=== PATIENT | female | born 1960 | race Caucasian/White ===

== ENCOUNTER → 2020-03-04 | Outpatient (CLI) | payer OTHER, SELFPAY ==
[~2020-03-04] MED LIST: HYDR1TAB94 PO; METPRE4DP PO; NAPR550 PO; OXYACE5T PO; Prinivil10 MG PO
[2020-03-06 17:19] LABS: CORONAVIRUS (COVID19) CSH-NRL Negative (Negative)
== END ==
LOC: LAB 18:47 → LAB SHORT 18:47
PROVIDERS: Chiropractor
DX: B34.9 Viral infection, unspecified (principal); Z20.828 Contact with and (suspected) exposure to other viral communicable diseases
CPT/HCPCS: U0003

== ENCOUNTER 2023-10-24 18:41 | Observation (INO) | payer OTHER ==
[~2023-10-24] VITALS: Ht 165.1 cm; Wt 67.4 kg
[2023-10-24 19:35] LABS: Influenza A, PCR NEGATIVE (NEGATIVE); Influenza B, PCR NEGATIVE (NEGATIVE); Resp Syncytial Virus, PCR NEGATIVE (NEGATIVE)
[2023-10-24] MEDS ORDERED: Acetaminophen 500 MG Tab PO ONE (20:05)
[2023-10-24 20:24] LABS: SARS-Cov-2 (COVID-19) PCR, MMC POSITIVE (NEGATIVE)
[2023-10-24] MEDS ORDERED: Lactated Ringer's 1,000 ML IV ONE ×2 (20:25→22:20)
[2023-10-24 20:28] LABS: BASOPHILS ABSOLUTE AUTO 0.03 K/mm3 (0.00-0.23); BASOPHILS PERCENT AUTO 1 % (0-2); EOSINOPHILS ABSOLUTE AUTO 0.02 K/mm3 (0.00-0.68); EOSINOPHILS PERCENT AUTO 0 % (0-6); Hematocrit 52.7 % (33.0-51.0); Hemoglobin 18.5 g/dL (11.5-16.0); IMMATURE GRAN ABSOLUTE AUTO 0.02 K/mm3 (0.00-0.10); IMMATURE GRAN PERCENT AUTO 0 % (0-1); LYMPHOCYTES ABSOLUTE AUTO 1.52 K/mm3 (0.84-5.20); LYMPHOCYTES PERCENT AUTO 23 % (21-46); MONOCYTES ABSOLUTE AUTO 0.55 K/mm3 (0.16-1.47); MONOCYTES PERCENT AUTO 8 % (4-13); Mean Corpuscular HGB 31.6 pg (26.0-34.0); Mean Corpuscular HGB Conc 35.1 g/dL (31.5-36.5); Mean Corpuscular Volume 90 fL (80-100); NEUTROPHILS ABSOLUTE AUTO 4.51 K/mm3 (1.96-9.15); NEUTROPHILS PERCENT AUTO 68 % (41-73); Platelet Count 197 K/mm3 (150-400); RDW Coefficient Variation 13.2 % (11.7-14.2); RDW Standard Deviation 43.7 fL (35.1-46.3); Red Blood Cell Count 5.86 M/mm3 (3.80-5.20); White Blood Cell Count 6.65 K/mm3 (4.00-11.30)
[2023-10-24 20:54] LABS: Albumin/Globulin Ratio 0.8 (0.8-1.8); Bilirubin, Total 0.5 mg/dL (0.1-1.0); Bun/Creatinine Ratio 27.1 (12.0-20.0); Calcium, Blood 8.5 mg/dL (8.5-10.1); Creatinine, Blood 0.7 mg/dL (0.40-1.00); Magnesium, Blood 2.2 mg/dL (1.6-2.4); Potassium, Blood 3.5 mmol/L (3.5-5.5)
[2023-10-24] MEDS ORDERED: Diltiazem HCl 5 MG / ML 5ML Vial IV ONE ×2 (21:00→22:30)
[2023-10-24 21:09] LABS: Thyroid Stimulating Hormone 1.86 uIU/mL (0.360-4.800)
[2023-10-24] MEDS ORDERED: Lactated Ringer's 1,000 ML IV SCH (22:15)
[2023-10-24] MEDS ORDERED: Ondansetron HCl 2 MG / ML 2ML Vial IV PRN (22:20)
[2023-10-24 22:36] LABS: Free Thyroxine 1.33 ng/dL (0.70-1.60)
[2023-10-24] MEDS ORDERED: Potassium Chloride 40 MEQ in NS 250 ML IV ONE (22:40)
[2023-10-24] MEDS ORDERED: Metoprolol Tartrate 1 MG/ML 5 ML VIAL IV ONE (23:00)
[2023-10-24] MEDS ORDERED: Enoxaparin 40 MG/0.4 ML SYR SC SCH (23:00)
[2023-10-24] MEDS ORDERED: Azithromycin 500 MG in NS 250 ML IV ONE (23:20)
[2023-10-24] MEDS ORDERED: CefTRIAXone Sodium 1,000 MG in NS 100 ML IV ONE (23:20)
[2023-10-25 00:11] LABS: Source, Urine Clean Catch
[2023-10-25 00:17] LABS: Appearance, Urine Clear (Clear); Bilirubin, Urine Neg (Neg); Blood, Urine Neg (Neg); Color, Urine Yellow (P-Yellow); Glucose Qualitative, Urine Neg (Neg); Ketones, Urine 1+ (Neg); Leukocyte Esterase, Urine Neg (Neg); Nitrite, Urine Neg (Neg); Protein, Urine Neg (Neg); Urobilinogen, Urine NORM (Normal); pH, Urine 6.5 (5.0-8.0)
[2023-10-25 00:47] VITALS: BP 136/92
[2023-10-25] MEDS ORDERED: NS 250 ML IV PRN (01:25)
[2023-10-25] MEDS ORDERED: NS 1,000 ML IV ONE (02:50)
[2023-10-25] MEDS ORDERED: Dexamethasone Sodium Phosphate 4 MG/ML 1ML Vial IV SCH (03:00)
[2023-10-25] MEDS ORDERED: Remdesivir (EUA) 200 MG in NS 250 ML IV ONE (03:15)
[2023-10-25 03:48] VITALS: BP 151/90
--- NOTE | 2023-10-25 06:33 | NUR ---
SHIFT SUMMARY PATIENT ARRIVED TO PCU 07 VIA STRETCHER AT 0045. SHE IS ALERT AND ORIENTED X4. PATIENT IS STEADY ON HER FEET, STAND BY ASSIST WITH AMBULATION FOR LINE MANAGEMENT. HAD NO COMPLAINTS OF PAIN. REPORTED SOME SHORTNESS OF BREATH. ON ROOM AIR WITH SPO2 >90%. MEDICATED PER EMAR FOR NAUSEA. PATIENT WAS AFIB IN THE 80'S-90'S UPON ADMIT AND SHORTLY AFTER CONVERTED TO SINUS RHYTHM IN THE 60'S. NO ACUTE ISSUES NOTED OVERNIGHT. WILL CONTINUE TO MONITOR. CALL LIGHT WITHIN REACH.
--- NOTE | 2023-10-25 07:19 | NUR ---
Report received from [facility]. Pt appears to be sleeping comfortably, on room air. Reported that pt has not had any supplemental O2 requirements. Respirations even, unlabored at time of report. Normal sinus rhythm 65 bpm.
[2023-10-25 07:46] VITALS: BP 117/77
--- NOTE | 2023-10-25 07:53 | NUR ---
Per report, pt was converted from afib to NSR after IV metoprolol and IV cardizem. There are no ordered p.o cardiac meds this morning. Will address with attending MD.
--- NOTE | 2023-10-25 08:30 | NUR ---
DR ALBERTS HERE ROUNDING.
[2023-10-25] MEDS ORDERED: Nicotine 21 MG PATCH TOP SCH (09:00)
[2023-10-25] MEDS ORDERED: Aspirin 325 MG Tab PO SCH (09:00)
[2023-10-25] MEDS ORDERED: Acetaminophen 500 MG Tab PO PRN (10:40)
--- NOTE | 2023-10-25 10:41 | NUR ---
PT REQUESTING TYLENOL FOR HEADACHE. CALL TO , ORDER RECEIVED WILL GIVE WHEN AVAILABLE. PT AWAITING ECHOCARDIOGRAM.
--- NOTE | 2023-10-25 11:39 | NUR ---
Pt is alert, oriented and appropriate in conversation. She is ambulatory in the room and to the bathroom without any noted difficulty, shortness of breath nor discomfort. Sinus rhythm noted by telemetry monitoring. She was given a Tylenol for headache. Echocardiogram in progress in room right now.
[2023-10-25 12:18] LABS: BASOPHILS ABSOLUTE AUTO 0.01 K/mm3 (0.00-0.23); BASOPHILS PERCENT AUTO 0 % (0-2); EOSINOPHILS PERCENT AUTO 0 % (0-6); Hematocrit 45.4 % (33.0-51.0); Hemoglobin 15.7 g/dL (11.5-16.0); IMMATURE GRAN ABSOLUTE AUTO 0.01 K/mm3 (0.00-0.10); IMMATURE GRAN PERCENT AUTO 0 % (0-1); LYMPHOCYTES ABSOLUTE AUTO 0.66 K/mm3 (0.84-5.20); LYMPHOCYTES PERCENT AUTO 20 % (21-46); MONOCYTES ABSOLUTE AUTO 0.13 K/mm3 (0.16-1.47); MONOCYTES PERCENT AUTO 4 % (4-13); Mean Corpuscular HGB 32.1 pg (26.0-34.0); Mean Corpuscular HGB Conc 34.6 g/dL (31.5-36.5); Mean Corpuscular Volume 93 fL (80-100); Mean Platelet Volume 11.1 fL (9.1-12.4); NEUTROPHILS ABSOLUTE AUTO 2.53 K/mm3 (1.96-9.15); NEUTROPHILS PERCENT AUTO 76 % (41-73); Platelet Count 178 K/mm3 (150-400); RDW Coefficient Variation 13.6 % (11.7-14.2); RDW Standard Deviation 46.5 fL (35.1-46.3); Red Blood Cell Count 4.89 M/mm3 (3.80-5.20); White Blood Cell Count 3.34 K/mm3 (4.00-11.30)
[2023-10-25 12:36] LABS: Albumin, Blood 2.7 g/dL (3.4-5.0); Albumin/Globulin Ratio 0.8 (0.8-1.8); Bilirubin, Total 0.3 mg/dL (0.1-1.0); Bun/Creatinine Ratio 26.3 (12.0-20.0); Creatinine, Blood 0.57 mg/dL (0.40-1.00); Globulin, Blood 3.4 g/dL (2.2-4.0); Potassium, Blood 3.9 mmol/L (3.5-5.5); Total Protein, Blood 6.1 g/dL (6.4-8.2)
[2023-10-26] MEDS ORDERED: Remdesivir (EUA) 100 MG in NS 250 ML IV SCH (12:00)
== END 2023-10-25 14:16 | disposition home or self-care (01) ==
LOC: ER 18:41 → ERHOLD 18:42 → PCU 18:42
PROVIDERS: Physician Assistant; Student in an Organized Health Care Education/Training Program; ADMIT Internal Medicine
DX: I48.91 Unspecified atrial fibrillation (principal); U07.1 COVID-19; E86.0 Dehydration; F17.210 Nicotine dependence, cigarettes, uncomplicated
CPT/HCPCS: 0241U; 36415; 71046; 80053; 81003; 83735; 83880; 84439; 84443; 84484; 85025; 93306; 96361; 96365; 96366; 96367; 96372; 96375; 96376; 99285-25; A9270; G0378; J0248; J0456; J0696; J1100; J1650; J2405; J3480; J7030; J7050; J7120

== ENCOUNTER 2025-02-23 06:58 | Day surgery (SDC) | payer OTHER ==
[~2025-02-23] VITALS: Ht 162.6 cm; Wt 72.1 kg
[2025-02-23] MEDS ORDERED: ATOR20 PO (07:25)
[2025-02-23] MEDS ORDERED: JARDIANCE10 MG PO (07:26)
[2025-02-23] MEDS ORDERED: LISI5 PO (07:27)
[2025-02-23 07:28] VITALS: BP 141/78
[2025-02-23] MEDS ORDERED: METO25ER PO (07:29)
[2025-02-23] MEDS ORDERED: XARELTO20 MG PO (07:29)
[2025-02-23] MEDS ORDERED: Heparin Sodium 1000 Units/ML 10ML MDV ONE (07:32)
[2025-02-23] MEDS ORDERED: NS 1,000 ML IV ONE ×2 (07:32→07:50)
[2025-02-23] MEDS ORDERED: Nitroglycerin 2 MG/20 ML BTL ONE (07:32)
[2025-02-23] MEDS ORDERED: NS 250 ML IV ONE (07:32)
[2025-02-23] MEDS ORDERED: Verapamil HCL 2.5 MG/ML 2ML Injection ONE (07:32)
[2025-02-23] MEDS ORDERED: FentaNYL Citrate 50 MCG/ML 2 ML Injection ONE (07:49)
[2025-02-23] MEDS ORDERED: Midazolam HCl 1MG / ML 2ML Vial ONE (07:49)
[2025-02-23 09:16] VITALS: BP 145/85
--- NOTE | 2025-02-23 09:18 | NUR ---
PT RETURNED TO RECOVERY ROOM IN RECLINER. RIGHT RADIAL SITE SOFT NON-TENDER WITH NO HEMATOMA, NO PULSATILE BLEEDING AND RIGHT WRIST BRACE IN PLACE. RIGHT AC VENOUS SITE SOFT NON-TENDER WITH NO HEMATOMA, NO BLEEDING AND INTACT DRESSING. PT DENIES CHEST PAIN. CALL LIGHT IN REACH. PT DRINKING CRANNBERY JUICE.
[2025-02-23 09:30] VITALS: BP 123/76
--- NOTE | 2025-02-23 09:41 | NUR ---
NO CHANGES TO R RAD OR R AC SITES.
--- NOTE | 2025-02-23 09:43 | NUR ---
PT EATING BREAKFAST; PT'S DAUGHTER IN ROOM.
[2025-02-23 09:45] VITALS: BP 143/78
[2025-02-23 10:00] VITALS: BP 139/104
--- NOTE | 2025-02-23 10:20 | NUR ---
NO CHANGES TO R RAD OR R AC SITES. 10 CC OF AIR REMOVED OUT OF NOW DEFLATED RIGHT TR BAND OVER 10 MIN. R RAD SITE STILL SOFT NON-TENDER WITH NO HEMATOMA, NO PULSATILE BLEEDING AND RIGHT BRACE IN PLACE. DISCHARGE INSTRUCTIONS REVIEWED ALL QUESTIONS ANSWERED.
--- NOTE | 2025-02-23 10:29 | NUR ---
NO CHANGES TO DEFLATED RIGHT TR BAND SITE.
[2025-02-23 10:30] VITALS: BP 134/72
--- NOTE | 2025-02-23 11:21 | NUR ---
NO CHANGES TO DEFLATED RIGHT TR BAND SITE. NO CHANGES TO RIGHT AC VENOUS SITE. DEFLATED RIGHT TR BAND REMOVED AND POLYMEM PLACED OVER R RAD SITE WITH RIGHT WRIST BOARD. R RAD AND R AC SITES STILL SOFT NON-TEMDER WITH NO HEMATOMA, NO PULSATILE BLEEDING. 20 G IV DISCONTINUED FROM LEFT AC WITH INTACT CANNULA. PT AMBULATED TO BR TO VOID. PT ESCORTED OUT VIA WHEELCHAIR ESCORT.
== END 2025-02-23 11:15 | disposition home or self-care (01) ==
LOC: MHTC 06:58
DX: I34.0 Nonrheumatic mitral (valve) insufficiency (principal); E11.9 Type 2 diabetes mellitus without complications; E78.5 Hyperlipidemia, unspecified; I48.0 Paroxysmal atrial fibrillation; I50.30 Unspecified diastolic (congestive) heart failure; I11.0 Hypertensive heart disease with heart failure; Z79.01 Long term (current) use of anticoagulants; Z79.899 Other long term (current) drug therapy
CPT/HCPCS: 76937; 93460; 99152; A9270; C1769; C1887; C1894; J1644; J2250; J3010; J7030; J7050; Q9967

== ENCOUNTER 2025-03-10 05:56 | Day surgery (SDC) | payer OTHER ==
[~2025-03-10] VITALS: Ht 162.6 cm; Wt 70.0 kg
[2025-03-10] VITALS (8 sets, daily range): BP systolic 92–133; BP diastolic 56–78
[~2025-03-10 05:56] MED LIST changes: +ATOR20 PO; +JARDIANCE10 MG PO; +LISI5 PO; +METO25ER PO; +XARELTO20 MG PO
[2025-03-10] MEDS ORDERED: NS 1,000 ML IV ONE (06:35)
[2025-03-10] MEDS ORDERED: Benzocaine Oral Spray 0.5ML UD ONE (06:44)
--- NOTE | 2025-03-10 08:14 | NUR ---
Assummed care of Pt from cathie @ 0730. Pt drowsy but alert and oriented. Able to verbalize needs, following commands, nicole equally. Pt denies cp or sob. VSS. Understands discharge orders & engaging with questions. Discharge orders also reviewed with pts daughter. Pt able to ambulate to wheelchair. Taken to private vehicle via wheelchair, pts daughter driving.
[2025-03-10] MEDS ORDERED: Lidocaine HCl 2% 20 MG/ML 5ML SYR IV ONE (08:36)
[2025-03-10] MEDS ORDERED: Propofol 10mg/ml 20 ml Vial (Procedural) IV ONE (08:36)
== END 2025-03-10 22:00 | disposition home or self-care (01) ==
LOC: MHTC 05:56
DX: I34.0 Nonrheumatic mitral (valve) insufficiency (principal); I11.0 Hypertensive heart disease with heart failure; E78.5 Hyperlipidemia, unspecified; E11.9 Type 2 diabetes mellitus without complications; I50.30 Unspecified diastolic (congestive) heart failure; I48.0 Paroxysmal atrial fibrillation; Z79.01 Long term (current) use of anticoagulants
CPT/HCPCS: 93312; 93325; A9270; J2003; J2704; J7030